=== PATIENT | male | born 1955 | race African-American/Black ===

== ENCOUNTER 2023-11-01 09:55 | Outpatient (CLI) | payer BC, SELFPAY ==
--- NOTE | 2023-11-01 10:04 | ECG_ITS ---
Measurements Intervals [place] Rate: 81 P: 53 OH: 163 QRS: -66 QRSD: 143 T: 47 QT: 398 QTc: 462 Interpretive Statements SINUS RHYTHM VENTRICULAR PREMATURE COMPLEX RIGHT BUNDLE BRANCH BLOCK LEFT ANTERIOR FASCICULAR BLOCK ABNORMAL ECG NO PREVIOUS ECG AVAILABLE FOR COMPARISON Electronically Signed On 11-01-2023 10:42:32 CDT by Lei Gama D.O.
[2023-11-01 10:38] LABS: Anion Gap 6 mmol/L (8-16); Blood Urea Nitrogen 12 mg/dL (9-20); Calcium 10.1 mg/dL (8.4-10.2); Carbon Dioxide 27 mmol/L (22-30); Chloride 107 mmol/L (98-107); Estimated Glomerular Filt Rate > 60; Glucose 132 mg/dL (65-110); Potassium 4.3 mmol/L (3.4-5.0); Sodium 140 mmol/L (137-145)
== END 2023-11-01 09:56 | disposition home or self-care (01) ==
LOC: ANHSURGERY 10:00
PROVIDERS: Anesthesiology; PCP Internal Medicine; Visit Provider Orthopaedic Surgery
DX: E11.9 Type 2 diabetes mellitus without complications (principal); Z01.818 Encounter for other preprocedural examination; I45.10 Unspecified right bundle-branch block; I44.4 Left anterior fascicular block
CPT/HCPCS: 36415; 80048; 93005

== ENCOUNTER 2023-11-05 01:41 | Day surgery (SDC) | payer BC, SELFPAY ==
[2023-10-29 10:19] VITALS: BMI 33.5
--- NOTE | 2023-10-29 10:29 | PC.NURSE ---
PRE-OP INSTRUCTIONS, PLEASE READ CAREFULLY Report to the Outpatient Waiting Room, entrance under the green pavilion located off [facility], at time _0800_ on date _11/05/23_. Planned Procedure Time: _1000_. Time changes happen often and if your time is changed the preop area will call you the afternoon before. - You and your visitor will be asked to self-screen and do not enter if you have any COVID symptoms. - A mask is optional within the hospital at this time. Patients may have clear liquids (water, carbonated beverages, clear teas, apple juice) until 3 hours prior to surgery (0700 AM) with a maximum of 20 ounces. - No food from midnight until time of surgery Take the following medications with a SIP of water the morning of surgery: _NONE_ DO NOT STOP ANY OF YOUR OTHER PRESCRIPTION MEDICATIONS PRIOR TO SURGERY ?EXCEPT THE FOLLOWING Medications to discontinue per DR. NICOLE - _ASPIRIN 5 DAYS PRIOR TO SURGERY, Date to take last dose 10/30/23_ Please no make-up, nail estonian, hairspray, perfume, deodorant, or body powder the day of surgery. No jewelry (including any body piercings) or valuables the day of surgery, leave them at home. Please take a shower or bath the night before, or the morning of, surgery with an antibacterial soap. Wear comfortable, loose fitting clothing. - Jewelry must be removed prior to entering the operating room. Rings and piercings that are not removed may be cut off. - The hospital will not accept responsibility for valuables. - Please leave all valuables, including medications, at home the day of surgery. If you are going home after surgery, a licensed [employer] company driver must drive you home. - NO public transportation without another adult if you receive anesthesia. - We recommend that an adult stay with you for 24 hours following discharge. - We also recommend that you do not drive, make important decision, drink alcoholic beverages, or take any drugs that were not prescribed by your health care provider for at least 24 hours after your discharge time. Follow any additional instructions given to you from your surgeon. If you or anyone in your household have experienced Covid symptoms in the past week, please notify your surgeon or the nurse liaison at the phone number below for possible testing. Telephone instructions given to _PATIENT_and asked if any additional questions and then verbalized understanding. Patient advised to call surgeon office or pre surgery nurse liaison [phone] if any additional questions.
--- NOTE | 2023-11-01 07:21 | PM.IMHP ---
H&P: HPI History of Present Illness Date/Time: 11/01/23 07:21 Chief Complaint: Patient has catching and locking in his right thumb. He is tender on the volar aspect of the thumb and has a trigger thumb. He would like to have the trigger thumb released on the right side. Review of Systems Musculoskeletal: Musculoskeletal: Reports arthralgias and Reports joint swelling PMF Past Medical History Medical History Diabetes Hypertension Surgical History Surgical History History of eye surgery History of surgery on lower extremity Social History Social History (Updated 10/25/23 @ 09:16 by Tana Bender CMA) Smoking status: Never smoker Second hand tobacco smoke exposure: No Alcohol intake: current Alcohol use details: STATES 2/MONTH IF THAT Substance use: never Substance use type: does not use Do You Feel Safe in your Home?: Yes Lack of Transportation: No Lack of Food: Never True Current Housing: I Have Housing Concerned About Future Housing: No Difficulty Paying Gas/Electric Bills: No Difficulty Paying for Meds: No Currently Unemployed: No Education: High School Diploma/GED Difficulty w/ Childcare or Family Care: No Living arrangements: with family Occupation/Education: occupation Additional occupation/education comments: 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 Spiritual care concerns: No Meds Home Medications and Allergies Home Medications Medication Instructions Recorded Confirmed Type aspirin 81 mg capsule 81 mg PO DAILY 03/22/23 10/29/23 History atorvastatin 10 mg tablet 10 mg PO DAILY 03/22/23 10/29/23 History glimepiride 1 mg tablet 1 mg PO QAM 03/22/23 10/29/23 History losartan 25 mg tablet 25 mg PO DAILY 03/22/23 10/29/23 History metformin 1,000 mg tablet 1,000 mg PO BID 03/22/23 10/29/23 History dapagliflozin propanediol 5 mg 5 mg PO DAILY 10/25/23 10/29/23 History tablet (Farxiga) Monjuvi 2.5 mg subcut WEEKLY 10/29/23 10/29/23 History Allergies Allergy/AdvReac Type Severity Reaction Status Date / Time No Known Allergies Allergy Verified 10/29/23 10:15 Exam Narrative: Patient is catching and pain in the right thumb. He has got a palpable nodule on the volar surface. Neurologically he has some mild the tingling in the thumb. The finger actually triggers him it catches. Eyes: General: appearance normal, both eyes and all related structures Neck: Neck: supple Resp: Effort & Inspection: normal respiratory effort Cardio: Rate: regular rate Rhythm: regular rhythm Assessment and Plan Assessment and plan (1) Trigger thumb of right hand: Code(s): M65.311 - Trigger thumb, right thumb Status: Acute Assessment and Plan: Patient is a trigger thumb right. We discussed treatment options in detail. He has failed conservative treatment like to consider release the right trigger thumb. Will proceed per his request. I have discussed risks benefits limitations and alternatives with the patient in detail.
--- NOTE | 2023-11-05 06:51 | WPDHPUPDATE1 ---
History and Physical Update Update Date/Time: 11/05/23 06:51 History and Physical has been reviewed, including an updated exam of the patient. There are NO changes in the patient's condition. Risks, benefits, and alternatives have been discussed and questions answered. Patient agrees to proceed with procedure.
[2023-11-05 08:23] LABS: Glucose Point of Care 112 mg/dl (65-105)
[2023-11-05 08:25] VITALS: BP 148/65; PULSE 90; RESP 14; TEMP 36.6; O2SAT 99
[2023-11-05] MEDS: KETOROLAC 15 MG/ML VIAL (*BKC) IV PUSH (08:25)
[2023-11-05] MEDS: LACTATED RINGERS 1,000 ML 30 ML IV CONT (08:25)
[2023-11-05] MEDS: ACETAMINOPHEN 500 MG TABLET 1000 MG PO (08:25)
--- NOTE | 2023-11-05 09:34 | WPDANESEPPF ---
Anes - Initial Pre Proc Eval Procedure: Operation Date: 11/05/23 10:00 Proposed Procedures p Right Trigger Thumb Release - Juan Leija MD Date/Time: 11/05/23 09:34 Surgeon: Juan Leija MD Pre Op Diagnosis: Right Trigger Thumb Patient Data Age: 68 Gender: M Height: 1.78 m Weight: 105.8 kg Last Vital Signs Temp 36.6 C 11/05/23 08:25 Pulse 90 11/05/23 08:25 Resp 14 11/05/23 08:25 BP 148/65 H 11/05/23 08:25 Pulse Ox 99 11/05/23 08:25 O2 Del Method Room Air 11/05/23 08:25 Allergies Allergy/AdvReac Type Severity Reaction Status Date / Time No Known Allergies Allergy Verified 11/05/23 09:30 Home Medications Medication Instructions Recorded Confirmed Type aspirin 81 mg capsule 81 mg PO DAILY 03/22/23 10/29/23 History atorvastatin 10 mg tablet 10 mg PO DAILY 03/22/23 10/29/23 History glimepiride 1 mg tablet 1 mg PO QAM 03/22/23 10/29/23 History losartan 25 mg tablet 25 mg PO DAILY 03/22/23 10/29/23 History metformin 1,000 mg tablet 1,000 mg PO BID 03/22/23 10/29/23 History dapagliflozin propanediol 5 mg 5 mg PO DAILY 10/25/23 10/29/23 History tablet (Farxiga) Monjuvi 2.5 mg subcut WEEKLY 10/29/23 10/29/23 History Laboratory Tests 11/05/23 08:20 POC Capillary Glucose 112 H mg/dl (65-105) Patient hx anesthesia problems: none Family hx anesthesia problems: none Results Review: All pre-operative results and documents have been reviewed as part of the pre-operative evaluation. [facility] Past Medical History Medical History Diabetes Hypertension Surgical History Surgical History History of eye surgery History of surgery on lower extremity Social History Social History Smoking status: Never smoker Second hand tobacco smoke exposure: No Alcohol intake: current Alcohol use details: STATES 2/MONTH IF THAT Substance use: never Substance use type: does not use Do You Feel Safe in your Home?: Yes Lack of Transportation: No Lack of Food: Never True Current Housing: I Have Housing Concerned About Future Housing: No Difficulty Paying Gas/Electric Bills: No Difficulty Paying for Meds: No Currently Unemployed: No Education: High School Diploma/GED Difficulty w/ Childcare or Family Care: No Living arrangements: with family Occupation/Education: occupation Additional occupation/education comments: 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 Informed Consent: The patient's anesthetic plan and its attendant risks and benefits were discussed with the patient/family/POA. Questions were solicited and answers provided to the satisfaction of the patient/family/POA.
[2023-11-05] MEDS: ceFAZolin 2 GM/D5W 50 ML 2 GM/50 ML BAG IVPB (09:54)
[2023-11-05] MEDS: LIDOCAINE HCL 1% LOCAL INJ 20 ML VIAL INFILTRATE (10:08)
--- NOTE | 2023-11-05 10:17 | W.PM.PROC2 ---
Procedure Note - Detailed Date of Procedure 11/05/23 Pre-op Diagnosis Right Trigger Thumb Post-op Diagnosis Same Procedure Performed Release A1 [place] thumb Surgeon Juan Leija MD Anesthesia General Findings Tight and Thickened A1 [place] Description of Procedure Patient brought to operating room 7. General anesthetic was administered. He was sterilely prepped and draped in usual manner. Local infiltrate placed along the line of intended incision in line with the thenar crease. Dissection carried down through the skin and gently and bluntly dissected down to the A1 [place]. This was identified and released under direct vision. The neurovascular bundles were protected by retractors the entire time. The wound was then closed with 3-0 Prolene. A sterile dressing was applied. Estimated Blood Loss 2 Condition Stable Disposition PACU [facility] Billing Surgery - Charge Forward: Surgery Billing (Trigger Thumb [id number])
[2023-11-05 10:28] VITALS: BP 122/55; PULSE 79; RESP 16; O2SAT 96
[2023-11-05 11:00] VITALS: BP 127/61; PULSE 69; RESP 16; O2SAT 95
[2023-11-05 11:30] VITALS: BP 107/66; PULSE 64; RESP 16
== END 2023-11-05 11:45 | disposition home or self-care (01) ==
PROVIDERS: PCP Internal Medicine; Visit Provider Orthopaedic Surgery
PROC: (CPT 26055; principal; 2023-11-05 10:00)
DX: M65.311 Trigger thumb, right thumb (principal); I10 Essential (primary) hypertension; E11.9 Type 2 diabetes mellitus without complications; E66.9 Obesity, unspecified; Z68.33 Body mass index [BMI] 33.0-33.9, adult; Z98.890 Other specified postprocedural states; Z79.82 Long term (current) use of aspirin; Z79.84 Long term (current) use of oral hypoglycemic drugs
CPT/HCPCS: 26055; 82948; A9270; J0690; J1885; J2250; J2704; J3010; J7120